=== PATIENT | male | born 2000 ===

== ENCOUNTER 2019-05-01 22:09 | Emergency (ER) | payer SELFPAY ==
[2019-05-01 22:50] LABS: Bilirubin Negative (Negative); Blood, Urine Negative (Negative); Clarity Clear (Clear); Glucose, Urine (Dipstick) Normal (Negative); Leukocyte Negative Leu/uL (Negative); Nitrite Negative (Negative); Protein, Urine (Dipstick) Negative (Neg-Trace); Urobilinogen Normal mg/dL (Less than 2)
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
== END 2019-05-01 23:32 | disposition home or self-care (01) ==
LOC: ERS 22:09
DX: S30.22XA Contusion of scrotum and testes, initial encounter (principal); W22.8XXA Striking against or struck by other objects, initial encounter
CPT/HCPCS: 76870; 81003; 93976